=== PATIENT | female | born 1955 | race Caucasian/White ===

== ENCOUNTER 2018-04-05 09:09 | Day surgery (SDC) | payer MEDICARE, OTHER ==
[2018-04-04 11:45] LABS: BASOPHILS % (AUTO) 0.2 % (0-1); EOSINOPHILS # (AUTO) 0.2 X10'3 (0-0.9); EOSINOPHILS % (AUTO) 2.8 % (0-6); LYMPHOCYTES # (AUTO) 0.4 X10'3 (1.1-4.8); LYMPHOCYTES % (AUTO) 4.9 % (21-51); MEAN CORPUSCULAR HEMOGLOBIN 31.5 PG (27.0-31.0); MEAN CORPUSCULAR HGB CONC 33.2 % (33.0-36.5); MEAN CORPUSCULAR VOLUME 94.8 FL (78-98); MEAN PLATELET VOLUME 8.1 FL (7.4-10.4); MONOCYTES # (AUTO) 0.6 X10'3 (0-0.9); MONOCYTES % (AUTO) 7.4 % (2-12); NEUTROPHILS # (AUTO) 6.3 X10'3 (1.8-7.7); NEUTROPHILS % (AUTO) 84.7 % (42-75); PRE OP HEMATOCRIT 29.2 % (35.0-45.0); PRE OP PLATELET COUNT 272 X10'3 (140-440); RED BLOOD COUNT 3.07 X10'6 (4.20-5.60); RED CELL DISTRIBUTION WIDTH 19.3 % (11.5-14.5)
[2018-04-04 11:54] LABS: ALBUMIN 3.2 G/DL (3.4-5.0); ALBUMIN/GLOBULIN RATIO 0.8 (1.1-1.5); ALKALINE PHOSPHATASE 135 IU/L (46-116); BLOOD UREA NITROGEN 120 MG/DL (7-18); BUN/CREATININE RATIO 7.1 (6.6-38.0); CALCIUM 9.5 MG/DL (8.5-10.1); CHLORIDE 82 MMOL/L (99-107); CREATININE 16.86 MG/DL (0.40-0.90); PRE OP ALT 29 U/L (30-65); PRE OP ANION GAP 18 (8-16); PRE OP AST 8 U/L (10-37); PRE OP BILIRUB, TOTAL 0.4 MG/DL (0.0-1.0); PRE OP GLUCOSE 106 MG/DL (70-104); PRE OP HEMOGLOBIN 9.7 g/dL (12.0-16.0); PRE OP POTASSIUM 5.4 MMOL/L (3.4-5.1); TOTAL CARBON DIOXIDE 22.5 MMOL/L (24-32); eGFR 2 ML/MIN
[2018-04-04 11:57] LABS: PRE OP SODIUM 122 MMOL/L (135-145)
[~2018-04-05] VITALS: Ht 160 cm; Wt 60.0 kg
[2018-04-05] VITALS (8 sets, daily range): BP systolic 122–150; BP diastolic 76–88
[~2018-04-05 09:09] MED LIST: ASPI-1265 PO; BIOT5CAP2 PO; BIOT5CAP3 PO; CLON-529 PO; CLON0.3T PO; DILT240C52 PO; DOCUMENT DATE & TIME OF BETA-BLOCKER PO ONE; FOLI0.8T19 PO; LACT10SO PO; LANT1000 PO; LISI-600 PO; LISI40TA4 PO; METO-467 PO; METO100T14 PO; ONDA4TAB6 PO; PHO667C PO; PRAM0.253 PO; PRAM0.5T12 PO; PROSTAT; SEVE800T8 PO; VIT-6 PO; cefazolin/dext.iso 2gm/100 ML IV ONE; famotidine 20mg tablet PO ONE; ringers solution, lacted 1,000 ML IV SCH
[2018-04-05 10:41] LABS: CLARITY,URINE CLEAR (Clear); COLOR,URINE STRAW (Yellow); GLUCOSE, URINE 100 mg/dl (Neg); KETONES,URINE NEGATIVE (Neg); LEUKOCYTE ESTERASE ,URINE SMALL (Neg); NITRITES, URINE NEGATIVE (Neg); OCCULT BLOOD,URINE MODERATE (Neg); PROTEIN,URINE 100 mg/dl (Neg); UROBILINOGEN,URINE 0.2 E.U/dL (0.2-1.0)
[2018-04-05 10:41] LABS: ISTAT ANION GAP 11 (8-12); ISTAT BUN 122 mg/dL (6-19); ISTAT CL 90 mmol/L (99-107); ISTAT CREATININE > 15.0 mg/dL (0.6-1.1); ISTAT GLUCOSE 104 mg/dL (70-104); ISTAT HGB 8.2 g/dl (12.0-16.0); ISTAT Hct 24 %PCV (35-48); ISTAT IONIZED CALCIUM 1.06 mmol/L (1.03-1.32); ISTAT K 5.4 mmol/L (3.5-5.1); ISTAT NA 123 mmol/L (135-145); ISTAT TOTAL CO2 22 mmol/L (24-32); ISTAT eGFR 2 ML/MIN; POC BUN/CREATININE RATIO 8.1 (6.6-38.0)
[2018-04-05 10:48] LABS: UA COLLECTION TYPE CLN CATCH MIDSTREAM
[2018-04-05 10:53] LABS: BACTERIA,URINE 1+ /HPF (Neg); RBC,URINE 0-2 /HPF (0-2); SQUAMOUS EPITHELIAL CELL,UR MANY /LPF (FEW)
[2018-04-05] MEDS ORDERED: ceFAZolin 1000mg inj ONE (13:02)
[2018-04-05] MEDS ORDERED: heparin sodium, porcine/PF 100unit/ml 5ML syringe ONE (13:02)
[2018-04-05] MEDS ORDERED: mupirocin 2% ointment 22GM ONE (13:02)
[2018-04-05] MEDS ORDERED: BUPIVAcaine/PF 2.5mg/ml (0.25%) 10ml vial ONE (13:03)
[2018-04-05] MEDS ORDERED: ringers solution, lacted 1,000 ML IV SCH ×2 (13:16→13:55)
[2018-04-05] MEDS ORDERED: proCHLORperazine 10 MG/2 ml inj IV PRN ×2 (13:20→13:55)
[2018-04-05] MEDS ORDERED: morphine 4 MG/ML inj SYRINge IV PRN ×4 (13:20→13:55)
[2018-04-05] MEDS ORDERED: meperidine/PF 25mg/ml syringe IV PRN ×3 (13:20)
[2018-04-05] MEDS ORDERED: ondansetron/PF 4mg/2ml inj IV PRN ×2 (13:20→13:55)
[2018-04-05] MEDS ORDERED: rocuronium 10mg/ml inj IV ONE (13:30)
[2018-04-05] MEDS ORDERED: neostigmine methylsulfate 1 MG/ML 10ml vial ONE (13:30)
[2018-04-05] MEDS ORDERED: glycopyrrolate 0.2mg/ml inj ONE (13:30)
[2018-04-05] MEDS ORDERED: desflurane 240ml liquid inh. IH ONE (13:30)
[2018-04-05] MEDS ORDERED: midazolam 2 mg/2 ml injection ONE (13:37)
[2018-04-05] MEDS ORDERED: LIDOcaine 2% (20mg/ml) 5ml vial ONE (13:37)
[2018-04-05] MEDS ORDERED: fentaNYL/PF 50MCG/1 ML 2ML syringe ONE (13:37)
[2018-04-05] MEDS ORDERED: propofol inj 20 ML IV ONE (13:38)
[2018-04-05] MEDS ORDERED: ondansetron/PF 4mg/2ml inj ONE (14:24)
== END 2018-04-05 15:25 | disposition home or self-care (01) ==
LOC: PAS 09:09
PROVIDERS: ATTEND Surgery
DX: T85.691A Other mechanical complication of intraperitoneal dialysis catheter, initial encounter (principal); Y83.8 Other surgical procedures as the cause of abnormal reaction of the patient, or of later complication, without mention of misadventure at the time of the procedure; Y92.89 Other specified places as the place of occurrence of the external cause; I12.0 Hypertensive chronic kidney disease with stage 5 chronic kidney disease or end stage renal disease; N18.6 End stage renal disease; K66.0 Peritoneal adhesions (postprocedural) (postinfection); I25.2 Old myocardial infarction; Z85.3 Personal history of malignant neoplasm of breast; Z79.82 Long term (current) use of aspirin; Z99.2 Dependence on renal dialysis; Z90.12 Acquired absence of left breast and nipple; Z92.21 Personal history of antineoplastic chemotherapy; Z90.89 Acquired absence of other organs; Z90.710 Acquired absence of both cervix and uterus; Z90.49 Acquired absence of other specified parts of digestive tract; Z88.6 Allergy status to analgesic agent; Z88.8 Allergy status to other drugs, medicaments and biological substances; Z98.890 Other specified postprocedural states; Z79.899 Other long term (current) drug therapy; Z84.1 Family history of disorders of kidney and ureter
CPT/HCPCS: 36415; 49325; 80047; 80053; 81001; 85025; 93005; A6449; J0690; J2001; J2250; J2405; J2704; J2710; J3010; J3490; A7000; J1642; J7120

== ENCOUNTER 2020-04-16 14:42 | Inpatient (IN) | payer MEDICARE, MEDICAID ==
[~2020-04-16] VITALS: Ht 160 cm; Wt 56.0 kg
[~2020-04-16 14:42] MED LIST changes: -DOCUMENT DATE & TIME OF BETA-BLOCKER PO ONE; -cefazolin/dext.iso 2gm/100 ML IV ONE; -famotidine 20mg tablet PO ONE; -ringers solution, lacted 1,000 ML IV SCH
--- NOTE | 2020-04-16 14:53 | NUR ---
Pt to CT via [facility].
[2020-04-16 15:04] LABS: BASOPHILS # (AUTO) 0.1 X10'3 (0-0.2); EOSINOPHILS # (AUTO) 0.3 X10'3 (0-0.9); EOSINOPHILS % (AUTO) 2.8 % (0-6); HEMATOCRIT 36.7 % (35.0-45.0); HEMOGLOBIN 11.9 g/dl (12.0-16.0); LYMPHOCYTES # (AUTO) 1.2 X10'3 (1.1-4.8); LYMPHOCYTES % (AUTO) 11.7 % (21-51); MEAN CORPUSCULAR HEMOGLOBIN 29.6 PG (27.0-31.0); MEAN CORPUSCULAR HGB CONC 32.4 g/dL (33.0-36.5); MEAN CORPUSCULAR VOLUME 91.4 FL (78-98); MEAN PLATELET VOLUME 9.4 FL (7.4-10.4); MONOCYTES # (AUTO) 0.9 X10'3 (0-0.9); MONOCYTES % (AUTO) 8.9 % (2-12); NEUTROPHILS # (AUTO) 7.7 X10'3 (1.8-7.7); NEUTROPHILS % (AUTO) 75.6 % (42-75); PLATELET COUNT 210 X10'3 (140-440); RED BLOOD COUNT 4.01 X10'6 (4.20-5.60); RED CELL DISTRIBUTION WIDTH 19.3 % (11.5-14.5); WHITE BLOOD COUNT 10.2 X10'3 (4.5-11.0)
--- NOTE | 2020-04-16 15:04 | NUR ---
Pt asked her husbands name and she was able to respond. Pt following commands at this time, slow to respond.
--- NOTE | 2020-04-16 15:04 | NUR ---
Pt returned from CT. Keke Alex RN at bedside.
--- NOTE | 2020-04-16 15:05 | NUR ---
Ivett scott at bedside.
[2020-04-16 15:19] LABS: PARTIAL THROMBOPLASTIN TIME 26 SECONDS (22-32)
[2020-04-16 15:24] LABS: ALANINE AMINOTRANSFERASE 23 U/L (12-78); ALBUMIN/GLOBULIN RATIO 0.7 (1.1-1.5); ALKALINE PHOSPHATASE 128 IU/L (46-116); ANION GAP 18 (8-16); ASPARTATE AMINO TRANSFERASE 28 U/L (10-37); BILIRUBIN,TOTAL 0.4 MG/DL (0.1-1.0); BLOOD UREA NITROGEN 38 MG/DL (7-18); BUN/CREATININE RATIO 3.9 (6.6-38.0); CALCIUM 8.6 MG/DL (8.5-10.1); CHLORIDE 94 MMOL/L (99-107); CREATININE 9.72 MG/DL (0.40-0.90); GLUCOSE 135 MG/DL (70-104); SODIUM 135 MMOL/L (135-145); TOTAL CARBON DIOXIDE 23.4 MMOL/L (24-32); TOTAL PROTEIN 7.5 G/DL (6.4-8.2); eGFR 4 ML/MIN
[2020-04-16 15:35] LABS: ANISOCYTOSIS 2+; LARGE PLATELETS FEW; PLATELET ESTIMATE NORMAL
--- NOTE | 2020-04-16 15:38 | NUR ---
Pts at bedside.
--- NOTE | 2020-04-16 15:49 | NUR ---
Pt states she does not make urine. Unable to obtain urine sample.
[2020-04-16] MEDS ORDERED: labetalol 20mg/4ml (5mg/ml) syringe IV ONE (15:55)
[2020-04-16] MEDS ORDERED: metoclopramide 5 mg/ml inj IV ONE (15:55)
[2020-04-16] MEDS ORDERED: ondansetron/PF 4mg/2ml inj IV PRN (16:00)
[2020-04-16] MEDS ORDERED: acetaminophen 325mg tablet PO PRN (16:00)
[2020-04-16] MEDS ORDERED: bisacodyl 10mg suppository rectal RC PRN (16:00)
--- NOTE | 2020-04-16 16:20 | NUR ---
Pt medicated for headache. Pt states pain has resolved at this time.
[2020-04-16] MEDS ORDERED: DILT360C38 PO (16:41)
[2020-04-16] MEDS ORDERED: ISOS60TA4 PO (16:43)
[2020-04-16] MEDS ORDERED: OMEP40CA13 PO (16:43)
[2020-04-16] MEDS ORDERED: VIT1TABL50 PO (16:43)
[2020-04-16] MEDS ORDERED: LEVO50TA8 PO (16:43)
[2020-04-16] MEDS ORDERED: ROSU5TAB12 PO (16:43)
--- NOTE | 2020-04-16 17:16 | NUR ---
Pt to MRI via w/c.
[2020-04-16] MEDS: aspirin 81mg tab.chew PO SCH (17:20)
[2020-04-16] MEDS: sevelamer carbonate 800mg tablet PO SCH (18:00)
[2020-04-16] MEDS: docusate sod 100mg capsule PO SCH ×2 (20:00→20:28)
--- NOTE | 2020-04-16 20:00 | NUR ---
I have received report from Galen from the ED and had the opportunity to ask questions and assume patient care.
[2020-04-16 20:15] VITALS: BP 188/94
--- NOTE | 2020-04-16 20:15 | NUR ---
Received pt from ED, settled into bed, assessed, passed medications and assisted PD Nurse with setting up tonight treatment. Will continue to monitor.
[2020-04-16] MEDS: lisinopril 20mg tablet PO SCH (20:27)
[2020-04-16] MEDS: cloNIDine 0.1 mg tablet PO SCH (20:28)
[2020-04-16] MEDS: metoprolol tartrate 50mg tablet PO SCH (20:29)
[2020-04-16] MEDS: heparin, porcine 5000 units/ml vial SQ SCH (20:31)
[2020-04-16] MEDS: HYDROcodone/acetaminophen 5mg/325mg tablet PO PRN (20:32)
--- NOTE | 2020-04-16 21:36 | NUR ---
Called Jodee Blair in regards to pts critical K level that was obtained in the ER. No new orders at this time. May states that the lab was old and we will readdress the level when new labs are drawn in am.
[2020-04-16 22:00] VITALS: BP 176/95
[2020-04-17] VITALS (7 sets, daily range): BP systolic 164–211; BP diastolic 92–108
[2020-04-17] MEDS: HYDROcodone/acetaminophen 5mg/325mg tablet PO PRN ×3 (01:42→20:45)
[2020-04-17 05:55] LABS: BASOPHILS % (AUTO) 0.5 % (0-1); EOSINOPHILS # (AUTO) 0.2 X10'3 (0-0.9); EOSINOPHILS % (AUTO) 2.3 % (0-6); HEMATOCRIT 33.7 % (35.0-45.0); HEMOGLOBIN 11.1 g/dl (12.0-16.0); LYMPHOCYTES # (AUTO) 0.9 X10'3 (1.1-4.8); LYMPHOCYTES % (AUTO) 10.8 % (21-51); MEAN CORPUSCULAR HEMOGLOBIN 29.8 PG (27.0-31.0); MEAN CORPUSCULAR HGB CONC 32.9 g/dL (33.0-36.5); MEAN CORPUSCULAR VOLUME 90.7 FL (78-98); MEAN PLATELET VOLUME 9.4 FL (7.4-10.4); MONOCYTES # (AUTO) 0.7 X10'3 (0-0.9); MONOCYTES % (AUTO) 8.7 % (2-12); NEUTROPHILS # (AUTO) 6.5 X10'3 (1.8-7.7); NEUTROPHILS % (AUTO) 77.7 % (42-75); PLATELET COUNT 181 X10'3 (140-440); RED BLOOD COUNT 3.72 X10'6 (4.20-5.60); RED CELL DISTRIBUTION WIDTH 18.8 % (11.5-14.5); WHITE BLOOD COUNT 8.3 X10'3 (4.5-11.0)
[2020-04-17 06:08] LABS: ALANINE AMINOTRANSFERASE 20 U/L (12-78); ALBUMIN 2.9 G/DL (3.4-5.0); ALBUMIN/GLOBULIN RATIO 0.7 (1.1-1.5); ALKALINE PHOSPHATASE 118 IU/L (46-116); ANION GAP 15 (8-16); ASPARTATE AMINO TRANSFERASE 17 U/L (10-37); BILIRUBIN,TOTAL 0.4 MG/DL (0.1-1.0); BLOOD UREA NITROGEN 36 MG/DL (7-18); BUN/CREATININE RATIO 3.8 (6.6-38.0); CALCIUM 8.8 MG/DL (8.5-10.1); CHLORIDE 98 MMOL/L (99-107); GLUCOSE 112 MG/DL (70-104); MAGNESIUM 1.9 MG/DL (1.5-2.4); PHOSPHORUS 7.1 MG/DL (2.3-4.5); SODIUM 140 MMOL/L (135-145); TOTAL CARBON DIOXIDE 26.9 MMOL/L (24-32); eGFR 4 ML/MIN
[2020-04-17 06:15] LABS: POTASSIUM 2.4 MMOL/L (3.5-5.1)
--- NOTE | 2020-04-17 06:18 | NUR ---
Problems reprioritized. Patient report given, questions answered & plan of care reviewed with Mariela RUEDA.
--- NOTE | 2020-04-17 06:30 | NUR ---
Patient in room PCU 3016. I have received report from MOHIT Guillory and had the opportunity to ask questions and assume patient care.
--- NOTE | 2020-04-17 07:20 | NUR ---
Called Kimberley regarding pts critical potassium of 2.4. No answer. Will continue to monitor patients heart rate and rhythm
[2020-04-17] MEDS: heparin, porcine 5000 units/ml vial SQ SCH ×2 (07:29→20:49)
[2020-04-17] MEDS: aspirin 81mg tab.chew PO SCH (07:29)
[2020-04-17] MEDS: docusate sod 100mg capsule PO SCH ×2 (07:30→20:00)
[2020-04-17] MEDS: folic acid/vitamin B complex w/vitamin C 0.8mg tablet PO SCH (07:31)
[2020-04-17] MEDS: levoTHYROXINE 25mcg tablet PO SCH (07:31)
[2020-04-17] MEDS: pantoprazole 40mg Tablet.DR PO SCH (07:33)
[2020-04-17] MEDS: atorvastatin 20mg tablet PO SCH (07:33)
[2020-04-17] MEDS: cloNIDine 0.1 mg tablet PO SCH ×3 (07:37→20:45)
[2020-04-17] MEDS: isosorbide mononitrate 30mg tab.SR.24H PO SCH (07:37)
[2020-04-17] MEDS: diltiazem CD 180mg cap (once-daily) PO SCH (07:38)
[2020-04-17] MEDS: metoprolol tartrate 50mg tablet PO SCH ×2 (07:38→20:47)
[2020-04-17] MEDS: sevelamer carbonate 800mg tablet PO SCH ×3 (07:42→17:56)
[2020-04-17 07:57] LABS: LARGE PLATELETS FEW
[2020-04-17 07:58] LABS: ANISOCYTOSIS 2+; PLATELET ESTIMATE NORMAL
--- NOTE | 2020-04-17 08:30 | NUR ---
Called Antionette regarding potassium of 2.4 for replacement.
[2020-04-17] MEDS ORDERED: pneumococcal 23-VAL P-sac vacc 25 mcg/0.5ml vial IMVAC ONE (10:00)
--- NOTE | 2020-04-17 12:00 | NUR ---
Spoke to Keyla RN with dialysis who asked Christie about pts potassium of 2.4. Per wraparound facilitator, christie stated to not to supplement at this time as pt will receive K+ through diet.
--- NOTE | 2020-04-17 18:00 | NUR ---
Patient in room PCU 3016. I have received report from Mariela RUEDA and had the opportunity to ask questions and assume patient care.
--- NOTE | 2020-04-17 18:07 | NUR ---
Problems reprioritized. Patient report given, questions answered & plan of care reviewed with MOHIT Alarcon.
[2020-04-17] MEDS: POTASSIUM BICARB 20meq eff tab 20 MEQ TABLET.EFF PO SCH (20:44)
[2020-04-17] MEDS: lisinopril 20mg tablet PO SCH (20:48)
[2020-04-18] MEDS: HYDROcodone/acetaminophen 5mg/325mg tablet PO PRN ×3 (01:28→22:40)
[2020-04-18 02:00] VITALS: BP 175/99
--- NOTE | 2020-04-18 06:00 | NUR ---
Patient in room PCU 3016. I have received report from Agnes RUEDA and had the opportunity to ask questions and assume patient care.
--- NOTE | 2020-04-18 06:07 | NUR ---
Problems reprioritized. Patient report given, questions answered & plan of care reviewed with Alyx RUEDA.
[2020-04-18 06:19] LABS: BASOPHILS % (AUTO) 0.5 % (0-1); EOSINOPHILS # (AUTO) 0.2 X10'3 (0-0.9); EOSINOPHILS % (AUTO) 3.3 % (0-6); HEMATOCRIT 29.3 % (35.0-45.0); HEMOGLOBIN 9.6 g/dl (12.0-16.0); LYMPHOCYTES # (AUTO) 0.9 X10'3 (1.1-4.8); LYMPHOCYTES % (AUTO) 14.3 % (21-51); MEAN CORPUSCULAR HEMOGLOBIN 29.8 PG (27.0-31.0); MEAN CORPUSCULAR HGB CONC 32.8 g/dL (33.0-36.5); MEAN CORPUSCULAR VOLUME 90.8 FL (78-98); MEAN PLATELET VOLUME 10.1 FL (7.4-10.4); MONOCYTES # (AUTO) 0.6 X10'3 (0-0.9); MONOCYTES % (AUTO) 9.9 % (2-12); NEUTROPHILS # (AUTO) 4.5 X10'3 (1.8-7.7); PLATELET COUNT 159 X10'3 (140-440); RED BLOOD COUNT 3.23 X10'6 (4.20-5.60); RED CELL DISTRIBUTION WIDTH 18.6 % (11.5-14.5); WHITE BLOOD COUNT 6.3 X10'3 (4.5-11.0)
[2020-04-18 06:33] LABS: ALANINE AMINOTRANSFERASE 18 U/L (12-78); ALBUMIN 2.4 G/DL (3.4-5.0); ALBUMIN/GLOBULIN RATIO 0.7 (1.1-1.5); ALKALINE PHOSPHATASE 105 IU/L (46-116); ANION GAP 12 (8-16); ASPARTATE AMINO TRANSFERASE 14 U/L (10-37); BILIRUBIN,TOTAL 0.3 MG/DL (0.1-1.0); BLOOD UREA NITROGEN 38 MG/DL (7-18); BUN/CREATININE RATIO 3.8 (6.6-38.0); CALCIUM 8.2 MG/DL (8.5-10.1); CHLORIDE 99 MMOL/L (99-107); GLUCOSE 92 MG/DL (70-104); MAGNESIUM 1.9 MG/DL (1.5-2.4); PHOSPHORUS 6.2 MG/DL (2.3-4.5); SODIUM 140 MMOL/L (135-145); TOTAL CARBON DIOXIDE 28.8 MMOL/L (24-32); eGFR 4 ML/MIN
[2020-04-18 06:48] LABS: POTASSIUM 2.9 MMOL/L (3.5-5.1)
[2020-04-18 07:00] VITALS: BP 211/118
[2020-04-18] MEDS: levoTHYROXINE 25mcg tablet PO SCH (08:20)
[2020-04-18] MEDS: metoprolol tartrate 50mg tablet PO SCH ×2 (08:21→20:16)
[2020-04-18] MEDS: isosorbide mononitrate 30mg tab.SR.24H PO SCH (08:21)
[2020-04-18] MEDS: diltiazem CD 180mg cap (once-daily) PO SCH (08:21)
[2020-04-18] MEDS: atorvastatin 20mg tablet PO SCH (08:22)
[2020-04-18] MEDS: folic acid/vitamin B complex w/vitamin C 0.8mg tablet PO SCH (08:22)
[2020-04-18] MEDS: docusate sod 100mg capsule PO SCH ×2 (08:22→20:00)
[2020-04-18] MEDS: pantoprazole 40mg Tablet.DR PO SCH (08:22)
[2020-04-18] MEDS: aspirin 81mg tab.chew PO SCH (08:22)
[2020-04-18] MEDS: cloNIDine 0.1 mg tablet PO SCH ×4 (08:22→20:16)
[2020-04-18] MEDS: POTASSIUM BICARB 20meq eff tab 20 MEQ TABLET.EFF PO SCH ×2 (08:23→20:12)
[2020-04-18] MEDS: heparin, porcine 5000 units/ml vial SQ SCH ×2 (08:23→20:12)
[2020-04-18] MEDS: sevelamer carbonate 800mg tablet PO SCH ×3 (08:32→17:40)
[2020-04-18 11:00] VITALS: BP 180/101
[2020-04-18 15:00] VITALS: BP 178/92
[2020-04-18 18:00] VITALS: BP 178/95
--- NOTE | 2020-04-18 18:17 | NUR ---
Problems reprioritized. Patient report given, questions answered & plan of care reviewed with Sarah RUEDA.
--- NOTE | 2020-04-18 18:30 | NUR ---
Patient in room PCU 3016. I have received report from Alyx RUEDA and had the opportunity to ask questions and assume patient care.
[2020-04-18] MEDS: lisinopril 20mg tablet PO SCH (20:15)
[2020-04-18 22:00] VITALS: BP 153/93
[2020-04-19] VITALS (7 sets, daily range): BP systolic 162–184; BP diastolic 98–107
--- NOTE | 2020-04-19 06:36 | NUR ---
Patient in room PCU 3016. I have received report from Sarah RUEDA and had the opportunity to ask questions and assume patient care.
[2020-04-19 06:49] LABS: BASOPHILS % (AUTO) 0.5 % (0-1); EOSINOPHILS # (AUTO) 0.2 X10'3 (0-0.9); EOSINOPHILS % (AUTO) 3.1 % (0-6); HEMATOCRIT 30.3 % (35.0-45.0); LYMPHOCYTES # (AUTO) 0.8 X10'3 (1.1-4.8); LYMPHOCYTES % (AUTO) 13.1 % (21-51); MEAN CORPUSCULAR HEMOGLOBIN 30.4 PG (27.0-31.0); MEAN CORPUSCULAR HGB CONC 33.1 g/dL (33.0-36.5); MEAN PLATELET VOLUME 9.8 FL (7.4-10.4); MONOCYTES # (AUTO) 0.6 X10'3 (0-0.9); MONOCYTES % (AUTO) 9.7 % (2-12); NEUTROPHILS # (AUTO) 4.6 X10'3 (1.8-7.7); NEUTROPHILS % (AUTO) 73.6 % (42-75); PLATELET COUNT 164 X10'3 (140-440); RED CELL DISTRIBUTION WIDTH 18.8 % (11.5-14.5); WHITE BLOOD COUNT 6.2 X10'3 (4.5-11.0)
--- NOTE | 2020-04-19 06:57 | NUR ---
Problems reprioritized. Patient report given, questions answered & plan of care reviewed with Eva RUEDA.
[2020-04-19 07:20] LABS: ALANINE AMINOTRANSFERASE 18 U/L (12-78); ALBUMIN 2.5 G/DL (3.4-5.0); ALBUMIN/GLOBULIN RATIO 0.7 (1.1-1.5); ALKALINE PHOSPHATASE 110 IU/L (46-116); ANION GAP 11 (8-16); ASPARTATE AMINO TRANSFERASE 12 U/L (10-37); BILIRUBIN,TOTAL 0.3 MG/DL (0.1-1.0); BLOOD UREA NITROGEN 41 MG/DL (7-18); BUN/CREATININE RATIO 3.9 (6.6-38.0); CALCIUM 8.7 MG/DL (8.5-10.1); CHLORIDE 97 MMOL/L (99-107); CREATININE 10.38 MG/DL (0.40-0.90); GLUCOSE 106 MG/DL (70-104); PHOSPHORUS 5.5 MG/DL (2.3-4.5); POTASSIUM 3.9 MMOL/L (3.5-5.1); SODIUM 138 MMOL/L (135-145); TOTAL CARBON DIOXIDE 30.4 MMOL/L (24-32); TOTAL PROTEIN 6.2 G/DL (6.4-8.2); eGFR 4 ML/MIN
[2020-04-19 07:42] LABS: ANISOCYTOSIS 2+; HYPOCHROMASIA 1+; PLATELET ESTIMATE NORMAL
[2020-04-19] MEDS: POTASSIUM BICARB 20meq eff tab 20 MEQ TABLET.EFF PO SCH ×2 (08:11→20:31)
[2020-04-19] MEDS: isosorbide mononitrate 30mg tab.SR.24H PO SCH (08:12)
[2020-04-19] MEDS: levoTHYROXINE 25mcg tablet PO SCH (08:13)
[2020-04-19] MEDS: aspirin 81mg tab.chew PO SCH (08:14)
[2020-04-19] MEDS: diltiazem CD 180mg cap (once-daily) PO SCH (08:14)
[2020-04-19] MEDS: pantoprazole 40mg Tablet.DR PO SCH (08:14)
[2020-04-19] MEDS: metoprolol tartrate 50mg tablet PO SCH ×2 (08:14→20:36)
[2020-04-19] MEDS: docusate sod 100mg capsule PO SCH ×2 (08:15→20:40)
[2020-04-19] MEDS: cloNIDine 0.1 mg tablet PO SCH ×3 (08:15→20:38)
[2020-04-19] MEDS: folic acid/vitamin B complex w/vitamin C 0.8mg tablet PO SCH (08:15)
[2020-04-19] MEDS: atorvastatin 20mg tablet PO SCH (08:15)
[2020-04-19] MEDS: heparin, porcine 5000 units/ml vial SQ SCH ×2 (08:16→20:32)
[2020-04-19] MEDS: sevelamer carbonate 800mg tablet PO SCH ×3 (08:17→17:28)
[2020-04-19] MEDS: HYDROchlorothiazide 12.5mg capsule PO SCH ×2 (16:03→23:25)
--- NOTE | 2020-04-19 18:36 | NUR ---
Patient in room PCU 3016. I have received report from Eva RUEDA and had the opportunity to ask questions and assume patient care.
--- NOTE | 2020-04-19 18:37 | NUR ---
Problems reprioritized. Patient report given, questions answered & plan of care reviewed with Sarah RUEDA.
[2020-04-19] MEDS: HYDROcodone/acetaminophen 5mg/325mg tablet PO PRN (20:37)
[2020-04-19] MEDS: lisinopril 20mg tablet PO SCH (20:38)
[2020-04-20] VITALS (7 sets, daily range): BP systolic 116–206; BP diastolic 91–135
[2020-04-20] MEDS: HYDROcodone/acetaminophen 5mg/325mg tablet PO PRN ×2 (00:49→21:03)
--- NOTE | 2020-04-20 02:30 | NUR ---
Radha Menchaca NP notified of patient's persistent elevated SBP 184-188. Pt. asymptomatic. No new orders given.
--- NOTE | 2020-04-20 06:10 | NUR ---
Patient in room PCU 3016. I have received report from Sarah RUEDA and had the opportunity to ask questions and assume patient care.
[2020-04-20 06:30] LABS: BASOPHILS % (AUTO) 0.5 % (0-1); EOSINOPHILS # (AUTO) 0.2 X10'3 (0-0.9); EOSINOPHILS % (AUTO) 2.9 % (0-6); HEMATOCRIT 33.8 % (35.0-45.0); HEMOGLOBIN 11.1 g/dl (12.0-16.0); LYMPHOCYTES # (AUTO) 0.9 X10'3 (1.1-4.8); LYMPHOCYTES % (AUTO) 11.9 % (21-51); MEAN CORPUSCULAR HEMOGLOBIN 30.2 PG (27.0-31.0); MEAN CORPUSCULAR VOLUME 91.7 FL (78-98); MEAN PLATELET VOLUME 9.8 FL (7.4-10.4); MONOCYTES # (AUTO) 0.7 X10'3 (0-0.9); MONOCYTES % (AUTO) 8.5 % (2-12); NEUTROPHILS # (AUTO) 5.8 X10'3 (1.8-7.7); NEUTROPHILS % (AUTO) 76.2 % (42-75); PLATELET COUNT 198 X10'3 (140-440); RED BLOOD COUNT 3.68 X10'6 (4.20-5.60); RED CELL DISTRIBUTION WIDTH 19.6 % (11.5-14.5); WHITE BLOOD COUNT 7.7 X10'3 (4.5-11.0)
--- NOTE | 2020-04-20 06:31 | NUR ---
Problems reprioritized. Patient report given, questions answered & plan of care reviewed with Eva RUEDA.
--- NOTE | 2020-04-20 06:54 | NUR ---
Student documentation: I have reviewed and agree with all interventions, assessments performed and documented by Manuel Christopher Clinical Rn Liaison.
[2020-04-20 06:58] LABS: ALANINE AMINOTRANSFERASE 19 U/L (12-78); ALBUMIN 2.6 G/DL (3.4-5.0); ALBUMIN/GLOBULIN RATIO 0.7 (1.1-1.5); ALKALINE PHOSPHATASE 119 IU/L (46-116); ANION GAP 11 (8-16); ASPARTATE AMINO TRANSFERASE 12 U/L (10-37); BILIRUBIN,TOTAL 0.3 MG/DL (0.1-1.0); BLOOD UREA NITROGEN 45 MG/DL (7-18); BUN/CREATININE RATIO 4.5 (6.6-38.0); CALCIUM 8.8 MG/DL (8.5-10.1); CHLORIDE 95 MMOL/L (99-107); CREATININE 9.97 MG/DL (0.40-0.90); GLUCOSE 106 MG/DL (70-104); PHOSPHORUS 4.5 MG/DL (2.3-4.5); POTASSIUM 4.9 MMOL/L (3.5-5.1); SODIUM 136 MMOL/L (135-145); TOTAL CARBON DIOXIDE 30.1 MMOL/L (24-32); TOTAL PROTEIN 6.5 G/DL (6.4-8.2); eGFR 4 ML/MIN
[2020-04-20 07:47] LABS: ANISOCYTOSIS 2+; PLATELET ESTIMATE NORMAL
[2020-04-20] MEDS: sevelamer carbonate 800mg tablet PO SCH ×3 (07:47→17:50)
[2020-04-20] MEDS: docusate sod 100mg capsule PO SCH ×2 (07:47→19:10)
[2020-04-20] MEDS: POTASSIUM BICARB 20meq eff tab 20 MEQ TABLET.EFF PO SCH ×2 (07:47→19:12)
[2020-04-20] MEDS: diltiazem CD 180mg cap (once-daily) PO SCH (07:48)
[2020-04-20] MEDS: metoprolol tartrate 50mg tablet PO SCH ×2 (07:49→19:11)
[2020-04-20] MEDS: HYDROchlorothiazide 12.5mg capsule PO SCH (07:49)
[2020-04-20] MEDS: levoTHYROXINE 25mcg tablet PO SCH (07:50)
[2020-04-20] MEDS: aspirin 81mg tab.chew PO SCH (07:50)
[2020-04-20] MEDS: pantoprazole 40mg Tablet.DR PO SCH (07:52)
[2020-04-20] MEDS: isosorbide mononitrate 30mg tab.SR.24H PO SCH (07:52)
[2020-04-20] MEDS: cloNIDine 0.1 mg tablet PO SCH ×3 (07:53→20:49)
[2020-04-20] MEDS: folic acid/vitamin B complex w/vitamin C 0.8mg tablet PO SCH (07:53)
[2020-04-20] MEDS: atorvastatin 20mg tablet PO SCH (07:53)
[2020-04-20] MEDS: heparin, porcine 5000 units/ml vial SQ SCH ×2 (07:54→19:11)
[2020-04-20] MEDS ORDERED: minoxidil 2.5mg tablet PO SCH (12:50)
[2020-04-20] MEDS ORDERED: furosemide 10 MG/1 ML 10ml inj IV ONE (14:40)
--- NOTE | 2020-04-20 15:09 | NUR ---
Paged RT re: Chely Dinero RM [id number], Pt having trouble breathing. Send Treatment robert. Thank you Eva RUEDA [phone]
--- NOTE | 2020-04-20 15:10 | NUR ---
Jaciel aware of pts High blood pressure 206/135. MD changed medications regiment and added Lasix to help with fluids. Will continue to monitor.
[2020-04-20] MEDS ORDERED: LORazepam 0.5 MG tablet PO ONE (15:15)
--- NOTE | 2020-04-20 15:22 | NUR ---
Chest X ray and RT on their sampson for STAT order per Jaciel. Will continue to monitor.
[2020-04-20 15:36] LABS: ABG BASE EXCESS 6.5 mmol/L (-2.0-2.0); ABG HCO3 30.6 mmol/L (22.0-26.0); ABG PCO2 (T) 41.7 mmHg (32.0-45.0); ABG PO2 (T) 59.1 mmHg (75.0-100.0); ALLEN'S TEST POSITIVE; FCOHb 0.9 % (0.0-3.9); FLOW 8 L/min; FMetHb 0.3 % (0.0-1.5); FO2Hb 90.9 % (94-97); TOTAL HEMOGLOBIN 13.2 G/dl (12.0-16.0)
[2020-04-20] MEDS: minoxidil 2.5mg tablet PO SCH (17:51)
--- NOTE | 2020-04-20 18:25 | NUR ---
Patient in room PCU 3016. I have received report from Eva Malloy RN and had the opportunity to ask questions and assume patient care.
--- NOTE | 2020-04-20 18:28 | NUR ---
Problems reprioritized. Patient report given, questions answered & plan of care reviewed with Sanya RN.
--- NOTE | 2020-04-20 18:34 | NUR ---
Patient in room PCU 3016. I have received report from MOHIT Velasquez and had the opportunity to ask questions and assume patient care.
[2020-04-20] MEDS: lisinopril 20mg tablet PO SCH (20:50)
[2020-04-21] VITALS (9 sets, daily range): BP systolic 125–177; BP diastolic 73–105
[2020-04-21] MEDS: minoxidil 2.5mg tablet PO SCH ×2 (00:06→08:22)
[2020-04-21 06:16] LABS: BASOPHILS # (AUTO) 0.1 X10'3 (0-0.2); EOSINOPHILS # (AUTO) 0.2 X10'3 (0-0.9); EOSINOPHILS % (AUTO) 1.8 % (0-6); HEMATOCRIT 31.8 % (35.0-45.0); HEMOGLOBIN 10.3 g/dl (12.0-16.0); LYMPHOCYTES # (AUTO) 0.7 X10'3 (1.1-4.8); LYMPHOCYTES % (AUTO) 7.7 % (21-51); MEAN CORPUSCULAR HEMOGLOBIN 29.7 PG (27.0-31.0); MEAN CORPUSCULAR HGB CONC 32.4 g/dL (33.0-36.5); MEAN CORPUSCULAR VOLUME 91.7 FL (78-98); MEAN PLATELET VOLUME 9.5 FL (7.4-10.4); MONOCYTES # (AUTO) 0.7 X10'3 (0-0.9); MONOCYTES % (AUTO) 8.2 % (2-12); NEUTROPHILS # (AUTO) 7.2 X10'3 (1.8-7.7); NEUTROPHILS % (AUTO) 81.3 % (42-75); PLATELET COUNT 182 X10'3 (140-440); RED BLOOD COUNT 3.47 X10'6 (4.20-5.60); RED CELL DISTRIBUTION WIDTH 19.3 % (11.5-14.5); WHITE BLOOD COUNT 8.8 X10'3 (4.5-11.0)
--- NOTE | 2020-04-21 06:16 | NUR ---
Problems reprioritized. Patient report given, questions answered & plan of care reviewed with Monica RUEDA.
--- NOTE | 2020-04-21 06:17 | NUR ---
Problems reprioritized. Patient report given, questions answered & plan of care reviewed with MOHIT Fofana.
--- NOTE | 2020-04-21 06:17 | NUR ---
orientee Medication Administration: For this medication-pass time frame, all medication were reviewed, dispensed, administered and documented per hospital policy by Faiza RUEDA. Sharath Medication Administration: For this medication-pass time frame, all medication were reviewed, dispensed, administered and documented per hospital policy by Faiza RUEDA.
[2020-04-21 06:50] LABS: ALANINE AMINOTRANSFERASE 15 U/L (12-78); ALBUMIN 2.5 G/DL (3.4-5.0); ALBUMIN/GLOBULIN RATIO 0.6 (1.1-1.5); ALKALINE PHOSPHATASE 118 IU/L (46-116); ANION GAP 9 (8-16); ASPARTATE AMINO TRANSFERASE 13 U/L (10-37); BILIRUBIN,TOTAL 0.4 MG/DL (0.1-1.0); BLOOD UREA NITROGEN 45 MG/DL (7-18); BUN/CREATININE RATIO 4.5 (6.6-38.0); CALCIUM 9.2 MG/DL (8.5-10.1); CHLORIDE 97 MMOL/L (99-107); CREATININE 10.02 MG/DL (0.40-0.90); GLUCOSE 163 MG/DL (70-104); MAGNESIUM 2.2 MG/DL (1.5-2.4); PHOSPHORUS 4.6 MG/DL (2.3-4.5); POTASSIUM 5.9 MMOL/L (3.5-5.1); SODIUM 137 MMOL/L (135-145); TOTAL CARBON DIOXIDE 30.9 MMOL/L (24-32); TOTAL PROTEIN 6.4 G/DL (6.4-8.2); eGFR 4 ML/MIN
[2020-04-21 07:01] LABS: ANISOCYTOSIS 2+; PLATELET ESTIMATE NORMAL
[2020-04-21] MEDS: sevelamer carbonate 800mg tablet PO SCH ×3 (08:00→17:42)
[2020-04-21] MEDS: POTASSIUM BICARB 20meq eff tab 20 MEQ TABLET.EFF PO SCH (08:10)
[2020-04-21] MEDS: heparin, porcine 5000 units/ml vial SQ SCH ×2 (08:10→21:08)
[2020-04-21] MEDS: folic acid/vitamin B complex w/vitamin C 0.8mg tablet PO SCH (08:11)
[2020-04-21] MEDS: levoTHYROXINE 25mcg tablet PO SCH (08:12)
[2020-04-21] MEDS: metoprolol tartrate 50mg tablet PO SCH ×2 (08:12→21:06)
[2020-04-21] MEDS: docusate sod 100mg capsule PO SCH ×2 (08:12→20:00)
[2020-04-21] MEDS: isosorbide mononitrate 30mg tab.SR.24H PO SCH (08:12)
[2020-04-21] MEDS: diltiazem CD 180mg cap (once-daily) PO SCH (08:12)
[2020-04-21] MEDS: cloNIDine 0.1 mg tablet PO SCH ×3 (08:12→21:05)
[2020-04-21] MEDS: aspirin 81mg tab.chew PO SCH (08:12)
[2020-04-21] MEDS: pantoprazole 40mg Tablet.DR PO SCH (08:12)
[2020-04-21] MEDS: atorvastatin 20mg tablet PO SCH (08:13)
--- NOTE | 2020-04-21 08:54 | NUR ---
Notified Dr. Adan of medication error, 175mcg of Synthroid given instead of the ordered 50mcg dose. No new orders given, will continue to monitor.
--- NOTE | 2020-04-21 15:38 | NUR ---
Initial: Pt admit w/ AMS, HTN, and hx ESRD on PD HS per EMR. Pt remains hypertensive though ALOC resolved per EMR. Pt advanced to renal/1.5L fluid restricted diet w/ PO improving from ~50% avg initially to 100% all meals today. LBM 04/20. Will monitor for additional protein needs on PD pending further PO hx this admit. Rec: 1. continue renal/1.5L fluid-restricted diet per MD 2. monitor for ONS needs 3. Nephro-serafin on PD and renvela w/ meals per MD 4. routine bowel care 5. wts w/ PD Addendum: 04/21/20 at [address] Amended: Links added.
[2020-04-21] MEDS: HYDROcodone/acetaminophen 5mg/325mg tablet PO PRN (17:43)
--- NOTE | 2020-04-21 18:10 | NUR ---
Patient in room PCU 3016. I have received report from MOHIT Anderson and had the opportunity to ask questions and assume patient care.
--- NOTE | 2020-04-21 18:20 | NUR ---
Orientee documentation: I have reviewed and agree with all interventions, assessments performed and documented by Nurys RUEDA. Orientee Medication Administration: For this medication-pass time frame, all medication were reviewed, dispensed, administered and documented per hospital policy by Nurys RUEDA.
--- NOTE | 2020-04-21 18:21 | NUR ---
Problems reprioritized. Patient report given, questions answered & plan of care reviewed with Dorothy RUEDA. Addendum: 04/21/20 at 1825 by Monica Nagy RN Note entered in error, report given to Karly RUEDA
[2020-04-21] MEDS ORDERED: doxazosin mesylate 2mg tablet PO SCH (21:00)
[2020-04-21] MEDS: lisinopril 20mg tablet PO SCH (21:06)
[2020-04-22 03:00] VITALS: BP 131/76
[2020-04-22] MEDS: HYDROcodone/acetaminophen 5mg/325mg tablet PO PRN (03:06)
--- NOTE | 2020-04-22 06:08 | NUR ---
Patient in room PCU 3016. I have received report from MOHIT Anderson and had the opportunity to ask questions and assume patient care.
--- NOTE | 2020-04-22 06:18 | NUR ---
Patient in room PCU 3016. I have received report from Sanya RUEDA and Faiza RUEDA and had the opportunity to ask questions and assume patient care.
--- NOTE | 2020-04-22 06:25 | NUR ---
Problems reprioritized. Patient report given, questions answered & plan of care reviewed with MOHIT Fofana.
[2020-04-22 06:59] VITALS: BP 117/71
[2020-04-22] MEDS: sevelamer carbonate 800mg tablet PO SCH ×2 (07:34→12:48)
[2020-04-22] MEDS: levoTHYROXINE 25mcg tablet PO SCH (07:34)
[2020-04-22] MEDS: isosorbide mononitrate 30mg tab.SR.24H PO SCH (07:35)
[2020-04-22] MEDS: folic acid/vitamin B complex w/vitamin C 0.8mg tablet PO SCH (07:35)
[2020-04-22] MEDS: cloNIDine 0.1 mg tablet PO SCH ×2 (07:36→12:48)
[2020-04-22] MEDS: aspirin 81mg tab.chew PO SCH (07:37)
[2020-04-22] MEDS: metoprolol tartrate 50mg tablet PO SCH (07:37)
[2020-04-22] MEDS: diltiazem CD 180mg cap (once-daily) PO SCH (07:37)
[2020-04-22] MEDS: atorvastatin 20mg tablet PO SCH (07:38)
[2020-04-22] MEDS: pantoprazole 40mg Tablet.DR PO SCH (07:38)
[2020-04-22] MEDS: heparin, porcine 5000 units/ml vial SQ SCH (07:39)
[2020-04-22] MEDS: docusate sod 100mg capsule PO SCH (07:41)
[2020-04-22 11:29] VITALS: BP 130/74
[2020-04-22] MEDS ORDERED: METO50TA16 PO (13:40)
[2020-04-22] MEDS ORDERED: CLON0.1T2 PO (13:40)
[2020-04-22] MEDS ORDERED: DOXA2TAB13 PO (13:40)
--- NOTE | 2020-04-22 16:42 | NUR ---
Patient stable for discharge per MD order. all necessary discharge information reviewed with patient before signing, panel monitor removed and returned, all belongings packed up and sent with patient, new Rx sent to preferred pharmacy [facility], left in private vehicle.
== END 2020-04-22 15:17 | disposition home or self-care (01) | DRG 682 ==
LOC: ER 14:43 → ED HOLD 16:00 → EDBEDREQ 19:38 → PCU 3S 20:29
PROVIDERS: ADMIT Internal Medicine Critical Care Medicine; ATTEND Internal Medicine Critical Care Medicine
PROC: 3E1M39Z Irrigation of Peritoneal Cavity using Dialysate, Percutaneous Approach (ICD-10-PCS; 2020-04-16)
PROC: 3E0234Z Introduction of Serum, Toxoid and Vaccine into Muscle, Percutaneous Approach (ICD-10-PCS; 2020-04-17)
PROC: 3E1M39Z Irrigation of Peritoneal Cavity using Dialysate, Percutaneous Approach (ICD-10-PCS; 2020-04-17)
PROC: 4A10X4Z Monitoring of Central Nervous Electrical Activity, External Approach (ICD-10-PCS; 2020-04-18)
PROC: 3E1M39Z Irrigation of Peritoneal Cavity using Dialysate, Percutaneous Approach (ICD-10-PCS; 2020-04-18)
PROC: 3E1M39Z Irrigation of Peritoneal Cavity using Dialysate, Percutaneous Approach (ICD-10-PCS; 2020-04-19)
PROC: 5A09357 Assistance with Respiratory Ventilation, Less than 24 Consecutive Hours, Continuous Positive Airway Pressure (ICD-10-PCS; principal; 2020-04-20)
PROC: 3E1M39Z Irrigation of Peritoneal Cavity using Dialysate, Percutaneous Approach (ICD-10-PCS; 2020-04-20)
PROC: 3E1M39Z Irrigation of Peritoneal Cavity using Dialysate, Percutaneous Approach (ICD-10-PCS; 2020-04-21)
PROC: 5A09357 Assistance with Respiratory Ventilation, Less than 24 Consecutive Hours, Continuous Positive Airway Pressure (ICD-10-PCS; 2020-04-22)
DX: I12.0 Hypertensive chronic kidney disease with stage 5 chronic kidney disease or end stage renal disease (principal); N18.6 End stage renal disease; G93.40 Encephalopathy, unspecified; E87.5 Hyperkalemia; G25.3 Myoclonus; R09.02 Hypoxemia; G43.909 Migraine, unspecified, not intractable, without status migrainosus; E87.70 Fluid overload, unspecified; Z79.899 Other long term (current) drug therapy; Z99.2 Dependence on renal dialysis; Z23 Encounter for immunization; Z88.8 Allergy status to other drugs, medicaments and biological substances; Z79.82 Long term (current) use of aspirin
CPT/HCPCS: 36415; 36600; 70450; 70551; 71045; 80053; 82803; 82948; 83735; 84100; 84443; 85008; 85018; 85025; 85610; 85730; 86870; 86885; 86900; 86901; 86902; 86905; 87081; 90732; 93005; 94660; 94760; 95816; 96374; 96375; 97110; 97161; 97530; 99285; E1594; G0378; J1644; J1940; J2405; J2765; J3490

== ENCOUNTER 2021-09-24 12:00 | Outpatient (CLI) | payer MEDICARE, MEDICAID ==
[~2021-09-24 12:00] MED LIST changes: -BIOT5CAP2 PO; -BIOT5CAP3 PO; -CLON-529 PO; +CLON0.1T2 PO; -CLON0.3T PO; -DILT240C52 PO; +DILT360C38 PO; +DOXA2TAB13 PO; -FOLI0.8T19 PO; +ISOS60TA71 PO; -LACT10SO PO; -LANT1000 PO; +LEVO50TA8 PO; -LISI-600 PO; +LISI40TA13 PO; -LISI40TA4 PO; -METO-467 PO; -METO100T14 PO; +METO50TA16 PO; +OMEP40CA21 PO; -ONDA4TAB6 PO; -PHO667C PO; -PRAM0.253 PO; -PRAM0.5T12 PO; -PROSTAT; +ROSU5TAB12 PO; -VIT-6 PO; +VIT1TABL50 PO
[2021-09-24 15:01] LABS: BASOPHILS % (AUTO) 0.8 % (0-1); EOSINOPHILS # (AUTO) 0.3 X10'3 (0-0.9); EOSINOPHILS % (AUTO) 4.4 % (0-6); HEMATOCRIT 25.3 % (35.0-45.0); HEMOGLOBIN 8.3 g/dl (12.0-16.0); LYMPHOCYTES # (AUTO) 0.8 X10'3 (1.1-4.8); LYMPHOCYTES % (AUTO) 14.3 % (21-51); MEAN CORPUSCULAR HEMOGLOBIN 30.5 PG (27.0-31.0); MEAN CORPUSCULAR HGB CONC 32.9 g/dL (33.0-36.5); MEAN CORPUSCULAR VOLUME 92.7 FL (78-98); MEAN PLATELET VOLUME 9.9 FL (7.4-10.4); MONOCYTES # (AUTO) 0.5 X10'3 (0-0.9); MONOCYTES % (AUTO) 9.2 % (2-12); NEUTROPHILS % (AUTO) 71.3 % (42-75); PLATELET COUNT 154 X10'3 (140-440); RED BLOOD COUNT 2.73 X10'6 (4.20-5.60); WHITE BLOOD COUNT 5.7 X10'3 (4.5-11.0)
[2021-09-24 15:14] LABS: APTT 24 SECONDS (22-32)
[2021-09-24 15:15] LABS: ANION GAP 16 (8-16); BLOOD UREA NITROGEN 61 MG/DL (7-18); BUN/CREATININE RATIO 5.1 (6.6-38.0); CALCIUM 8.7 MG/DL (8.5-10.1); CHLORIDE 100 MMOL/L (99-107); CREATININE 12.02 MG/DL (0.40-0.90); GLUCOSE 101 MG/DL (70-104); SODIUM 139 MMOL/L (135-145); TOTAL CARBON DIOXIDE 22.9 MMOL/L (24-32); eGFR 3 ML/MIN
== END 2021-09-24 23:59 | disposition home or self-care (01) ==
LOC: PRE-OP 12:00 → EDSTATUS 09-29 18:00
PROVIDERS: ATTEND Internal Medicine Interventional Cardiology
DX: Z01.810 Encounter for preprocedural cardiovascular examination (principal); R07.89 Other chest pain; I10 Essential (primary) hypertension; Z79.899 Other long term (current) drug therapy
CPT/HCPCS: 36415; 80048; 85025; 85610; 85730

== ENCOUNTER 2022-02-24 10:37 | Day surgery (SDC) | payer MEDICARE, MEDICAID ==
[2022-02-24] VITALS (12 sets, daily range): BP systolic 123–173; BP diastolic 74–93
[~2022-02-24] VITALS: Ht 157.5 cm; Wt 52.2 kg
[~2022-02-24 10:37] MED LIST changes: +ALPR0.255 PO; +BUPIVAcaine/PF 2.5mg/ml (0.25%) 10ml vial ONE; +CLON0.1T PO; -CLON0.1T2 PO; +CLOP75TA34 PO; +DILT300C34 PO; -DILT360C38 PO; +DOCUMENT DATE & TIME OF BETA-BLOCKER PO ONE; -DOXA2TAB13 PO; +DOXA8TAB20 PO; +ISOS30TA84 PO; -ISOS60TA71 PO; -LEVO50TA8 PO; +LEVO75TA7 PO; +LIDOCAINE 1%/EPI 1:100,000 inj. 10 ML multi-dose vial ONE; +LISI-645 PO; -LISI40TA13 PO; -METO50TA16 PO; +METO50TA17 PO; +ROSU10TA2 PO; -ROSU5TAB12 PO; +ceFAZolin 1000mg inj ONE; +ceFAZolin inj. 2,000 MG in dextrose 5%-water 100 ML IV ONE; +famotidine 20mg tablet PO ONE; +heparin sodium, porcine/PF 100unit/ml 5ML syringe ONE; +povidone-iodine 10% ointment 1 APPLIC APPLIC TP ONE; +ringers solution, lacted 1,000 ML IV SCH
[2022-02-24 12:29] LABS: BASOPHILS % (AUTO) 0.4 % (0-1); EOSINOPHILS # (AUTO) 0.2 X10'3 (0-0.9); EOSINOPHILS % (AUTO) 3.6 % (0-6); LYMPHOCYTES # (AUTO) 0.7 X10'3 (1.1-4.8); LYMPHOCYTES % (AUTO) 10.3 % (21-51); MEAN CORPUSCULAR HEMOGLOBIN 31.4 PG (27.0-31.0); MEAN CORPUSCULAR HGB CONC 32.7 g/dL (33.0-36.5); MEAN CORPUSCULAR VOLUME 95.9 FL (78-98); MEAN PLATELET VOLUME 8.6 FL (7.4-10.4); MONOCYTES # (AUTO) 0.5 X10'3 (0-0.9); MONOCYTES % (AUTO) 7.9 % (2-12); NEUTROPHILS # (AUTO) 4.9 X10'3 (1.8-7.7); NEUTROPHILS % (AUTO) 77.8 % (42-75); PRE OP HEMATOCRIT 38.9 % (35.0-45.0); PRE OP HEMOGLOBIN 12.7 g/dL (12.0-16.0); PRE OP PLATELET COUNT 214 X10'3 (140-440); RED BLOOD COUNT 4.05 X10'6 (4.20-5.60); RED CELL DISTRIBUTION WIDTH 18.3 % (11.5-14.5)
[2022-02-24 12:42] LABS: ALBUMIN 3.3 G/DL (3.4-5.0); ALBUMIN/GLOBULIN RATIO 0.7 (1.1-1.5); ALKALINE PHOSPHATASE 158 IU/L (46-116); BLOOD UREA NITROGEN 51 MG/DL (7-18); BUN/CREATININE RATIO 9.9 (6.6-38.0); CALCIUM 10.6 MG/DL (8.5-10.1); CHLORIDE 97 MMOL/L (99-107); CREATININE 5.15 MG/DL (0.40-0.90); PRE OP ALT 16 U/L (30-65); PRE OP ANION GAP 13 (8-16); PRE OP AST 14 U/L (10-37); PRE OP BILIRUB, TOTAL 0.4 MG/DL (0.0-1.0); PRE OP GLUCOSE 100 MG/DL (70-104); PRE OP POTASSIUM 3.8 MMOL/L (3.4-5.1); PRE OP SODIUM 139 MMOL/L (135-145); TOTAL CARBON DIOXIDE 29.2 MMOL/L (24-32); TOTAL PROTEIN 7.8 G/DL (6.4-8.2); eGFR 8 ML/MIN
[2022-02-24] MEDS ORDERED: normal saline 500ml IV soln 500 ML IV SCH (13:25)
[2022-02-24] MEDS ORDERED: mupirocin 2% ointment 22GM ONE (15:44)
[2022-02-24] MEDS ORDERED: fentaNYL/PF 50MCG/1 ML 2ML syringe ONE (16:02)
[2022-02-24] MEDS ORDERED: midazolam 1 mg/ML 2ml injection ONE (16:02)
[2022-02-24] MEDS ORDERED: ketamine 50mg/5ml syringe ONE (16:02)
[2022-02-24] MEDS ORDERED: LIDOcaine 1%/PF 5ML 10 MG/ML VIAL ONE (16:16)
[2022-02-24] MEDS ORDERED: propofol inj 20 ML IV ONE (16:16)
[2022-02-24] MEDS ORDERED: ePHEDrine 50MG/ML INJ. ONE (16:19)
--- NOTE | 2022-02-24 16:20 | NUR ---
Received from OR via [facility], accompanied by Anesthesiologist DR HICKS and report given by Anesthesiolgist. PT PRESENTS WITH PIV 20G RIGHT FOREARM, ABD DRESSING CDI, VSS. Addendum: 02/24/22 at 1636 by Samantha Fuller RN, RN Amended: Links added.
[2022-02-24] MEDS ORDERED: HYDROcodone/acetaminophen 10/325mg tab PO ONE (16:57)
== END 2022-02-24 17:50 | disposition home or self-care (01) ==
LOC: PAS 10:37
PROVIDERS: ATTEND Surgery
DX: T85.71XA Infection and inflammatory reaction due to peritoneal dialysis catheter, initial encounter (principal); I10 Essential (primary) hypertension; Z88.8 Allergy status to other drugs, medicaments and biological substances; N18.9 Chronic kidney disease, unspecified; D64.9 Anemia, unspecified; Z85.3 Personal history of malignant neoplasm of breast; Z20.822 Contact with and (suspected) exposure to COVID-19; Z79.899 Other long term (current) drug therapy; Z98.890 Other specified postprocedural states; Z90.710 Acquired absence of both cervix and uterus; Z90.12 Acquired absence of left breast and nipple; Y83.8 Other surgical procedures as the cause of abnormal reaction of the patient, or of later complication, without mention of misadventure at the time of the procedure
CPT/HCPCS: 10060; 36415; 80053; 82948; 85025; 87811; J0690; J2250; J2704; J3010; J3490; J7040; J7060; J7120; Z7506; Z7512; A4215; A4618; J1642

== ENCOUNTER 2022-05-07 11:02 | Day surgery (SDC) | payer MEDICARE, MEDICAID ==
[2022-05-05 09:35] LABS: APTT 26 SECONDS (22-32)
[2022-05-05 09:48] LABS: BASOPHILS % (AUTO) 0.3 % (0-1); EOSINOPHILS # (AUTO) 0.2 X10'3 (0-0.9); EOSINOPHILS % (AUTO) 2.9 % (0-6); HEMATOCRIT 35.2 % (35.0-45.0); HEMOGLOBIN 11.3 g/dl (12.0-16.0); LYMPHOCYTES # (AUTO) 0.7 X10'3 (1.1-4.8); LYMPHOCYTES % (AUTO) 11.3 % (21-51); MEAN CORPUSCULAR HEMOGLOBIN 32.9 PG (27.0-31.0); MEAN CORPUSCULAR HGB CONC 32.2 g/dL (33.0-36.5); MEAN CORPUSCULAR VOLUME 102.2 FL (78-98); MEAN PLATELET VOLUME 8.9 FL (7.4-10.4); MONOCYTES # (AUTO) 0.7 X10'3 (0-0.9); MONOCYTES % (AUTO) 10.4 % (2-12); NEUTROPHILS # (AUTO) 4.9 X10'3 (1.8-7.7); NEUTROPHILS % (AUTO) 75.1 % (42-75); PLATELET COUNT 175 X10'3 (140-440); RED BLOOD COUNT 3.45 X10'6 (4.20-5.60); RED CELL DISTRIBUTION WIDTH 19.4 % (11.5-14.5); WHITE BLOOD COUNT 6.5 X10'3 (4.5-11.0)
[2022-05-05 09:49] LABS: ALBUMIN 3.2 G/DL (3.4-5.0); BLOOD UREA NITROGEN 53 MG/DL (7-18); BUN/CREATININE RATIO 10.7 (6.6-38.0); CALCIUM 9.8 MG/DL (8.5-10.1); CHOL/HDL RATIO 2.2 (0.00-4.99); CHOLESTEROL 129 MG/DL (0-200); CREATININE 4.96 MG/DL (0.40-0.90); GLUCOSE 105 MG/DL (70-104); HDL CHOLESTEROL 59 MG/DL (35-60); LDL CHOLESTEROL 56 MG/DL (50-100); TOTAL CARBON DIOXIDE 30.1 MMOL/L (24-32); TRIGLYCERIDES 62 MG/DL (20-135); eGFR 9 ML/MIN
[2022-05-05 10:29] LABS: ANISOCYTOSIS 2+; ELLIPTOCYTES 1+; PLATELET ESTIMATE NORMAL
[2022-05-05 10:30] LABS: LARGE PLATELETS FEW
[2022-05-05 11:51] LABS: ANION GAP 12 (8-16); CHLORIDE 99 MMOL/L (99-107); POTASSIUM 4.2 MMOL/L (3.5-5.1); SODIUM 141 MMOL/L (135-145)
[2022-05-07] VITALS (9 sets, daily range): BP systolic 136–187; BP diastolic 59–86
[~2022-05-07] VITALS: Ht 162.6 cm; Wt 54.2 kg
[~2022-05-07 11:02] MED LIST changes: -BUPIVAcaine/PF 2.5mg/ml (0.25%) 10ml vial ONE; -DOCUMENT DATE & TIME OF BETA-BLOCKER PO ONE; -LIDOCAINE 1%/EPI 1:100,000 inj. 10 ML multi-dose vial ONE; -ceFAZolin 1000mg inj ONE; -ceFAZolin inj. 2,000 MG in dextrose 5%-water 100 ML IV ONE; -famotidine 20mg tablet PO ONE; -heparin sodium, porcine/PF 100unit/ml 5ML syringe ONE; -povidone-iodine 10% ointment 1 APPLIC APPLIC TP ONE; -ringers solution, lacted 1,000 ML IV SCH
[2022-05-07] MEDS ORDERED: verapamil 2.5 mg/ml inj IV ONE (11:27)
[2022-05-07] MEDS ORDERED: nitroGLYCERIN-Tridil 50MG/D5W 250 ML IV ONE (11:28)
[2022-05-07] MEDS ORDERED: fentaNYL/PF 50MCG/1 ML 2ML syringe ONE (11:28)
[2022-05-07] MEDS ORDERED: iohexol 350MG/ML 100ml bottle IV ONE (11:28)
[2022-05-07] MEDS ORDERED: heparin 1,000unit/ml 10ml vial 0 ML ONE (11:28)
[2022-05-07] MEDS ORDERED: midazolam 1 mg/ML 2ml injection ONE (11:28)
[2022-05-07] MEDS ORDERED: diphenhydrAMINE 25mg capsule PO PRN (12:05)
[2022-05-07] MEDS ORDERED: LORazepam 0.5 MG tablet PO PRN (12:05)
[2022-05-07] MEDS ORDERED: normal saline 1,000 ML IV SCH (12:05)
[2022-05-07] MEDS ORDERED: LIDOcaine 1% (10mg/ml) 2ml vial ONE (12:19)
[2022-05-10 06:45] LABS: ISTAT Hct MIX 33 %PCV (35-45); ISTAT O2 SATURATION MIX VENOUS 70 % (60-80); ISTAT SOURCE BLNK
== END 2022-05-07 16:45 | disposition home or self-care (01) ==
LOC: SSTAY O 11:02
PROVIDERS: ATTEND Student in an Organized Health Care Education/Training Program
DX: Z01.810 Encounter for preprocedural cardiovascular examination (principal); I25.10 Atherosclerotic heart disease of native coronary artery without angina pectoris; I12.0 Hypertensive chronic kidney disease with stage 5 chronic kidney disease or end stage renal disease; I42.9 Cardiomyopathy, unspecified; E78.5 Hyperlipidemia, unspecified; N18.6 End stage renal disease; Z79.899 Other long term (current) drug therapy; Z79.82 Long term (current) use of aspirin; E03.9 Hypothyroidism, unspecified; Z88.8 Allergy status to other drugs, medicaments and biological substances; Z90.49 Acquired absence of other specified parts of digestive tract; Z98.890 Other specified postprocedural states
CPT/HCPCS: 36415; 80048; 80061; 82803; 85014; 85025; 85610; 85730; 93005; 93451; 99152; C1751; C1769; J1644; J2250; J3010; J3490; J7030; Q9967; 85008; A6258

== ENCOUNTER 2022-06-30 13:42 | Day surgery (SDC) | payer MEDICARE, MEDICAID ==
[2022-06-24 16:11] LABS: BASOPHILS % (AUTO) 0.9 % (0-1); EOSINOPHILS # (AUTO) 0.1 X10'3 (0-0.9); EOSINOPHILS % (AUTO) 2.7 % (0-6); HEMATOCRIT 38.9 % (35.0-45.0); HEMOGLOBIN 12.8 g/dl (12.0-16.0); LYMPHOCYTES # (AUTO) 0.7 X10'3 (1.1-4.8); LYMPHOCYTES % (AUTO) 13.4 % (21-51); MEAN CORPUSCULAR HEMOGLOBIN 34.4 PG (27.0-31.0); MEAN CORPUSCULAR HGB CONC 32.9 g/dL (33.0-36.5); MEAN CORPUSCULAR VOLUME 104.5 FL (78-98); MEAN PLATELET VOLUME 9.5 FL (7.4-10.4); MONOCYTES # (AUTO) 0.4 X10'3 (0-0.9); MONOCYTES % (AUTO) 7.5 % (2-12); NEUTROPHILS # (AUTO) 3.7 X10'3 (1.8-7.7); NEUTROPHILS % (AUTO) 75.5 % (42-75); PLATELET COUNT 170 X10'3 (140-440); RED BLOOD COUNT 3.73 X10'6 (4.20-5.60); RED CELL DISTRIBUTION WIDTH 15.8 % (11.5-14.5); WHITE BLOOD COUNT 4.9 X10'3 (4.5-11.0)
[2022-06-24 16:21] LABS: APTT 26 SECONDS (22-32)
[2022-06-24 16:24] LABS: ALBUMIN 3.6 G/DL (3.4-5.0); ANION GAP 6 (8-16); BLOOD UREA NITROGEN 23 MG/DL (7-18); BUN/CREATININE RATIO 8.5 (6.6-38.0); CALCIUM 9.6 MG/DL (8.5-10.1); CHLORIDE 101 MMOL/L (99-107); GLUCOSE 84 MG/DL (70-104); POTASSIUM 3.2 MMOL/L (3.5-5.1); SODIUM 139 MMOL/L (135-145); TOTAL CARBON DIOXIDE 31.9 MMOL/L (24-32); eGFR 17 ML/MIN
[2022-06-30] VITALS (9 sets, daily range): BP systolic 139–171; BP diastolic 64–76
[~2022-06-30] VITALS: Ht 157.5 cm; Wt 56.3 kg
[2022-06-30] MEDS ORDERED: diphenhydrAMINE 25mg capsule PO PRN (14:10)
[2022-06-30] MEDS ORDERED: normal saline 1,000 ML IV SCH (14:10)
[2022-06-30] MEDS ORDERED: LORazepam 0.5 MG tablet PO PRN (14:10)
[2022-06-30 16:02] LABS: ALBUMIN 3.3 G/DL (3.4-5.0); ANION GAP 10 (8-16); BLOOD UREA NITROGEN 76 MG/DL (7-18); BUN/CREATININE RATIO 13.4 (6.6-38.0); CALCIUM 9.8 MG/DL (8.5-10.1); CHLORIDE 100 MMOL/L (99-107); CREATININE 5.67 MG/DL (0.40-0.90); GLUCOSE 93 MG/DL (70-104); POTASSIUM 4.5 MMOL/L (3.5-5.1); SODIUM 138 MMOL/L (135-145); TOTAL CARBON DIOXIDE 28.3 MMOL/L (24-32); eGFR 7 ML/MIN
[2022-06-30] MEDS ORDERED: verapamil 2.5 mg/ml inj IV ONE (16:08)
[2022-06-30] MEDS ORDERED: iohexol 350MG/ML 100ml bottle IV ONE (16:08)
[2022-06-30] MEDS ORDERED: nitroGLYCERIN-Tridil 50MG/D5W 250 ML IV ONE (16:08)
[2022-06-30] MEDS ORDERED: LIDOcaine 1% (10mg/ml) 2ml vial ONE (16:08)
[2022-06-30] MEDS ORDERED: heparin 1,000unit/ml 10ml vial 10 ML ONE (16:08)
[2022-06-30] MEDS ORDERED: fentaNYL/PF 50MCG/1 ML 2ML syringe ONE (18:12)
[2022-06-30] MEDS ORDERED: midazolam 1 mg/ML 2ml injection ONE (18:13)
== END 2022-06-30 20:45 | disposition home or self-care (01) ==
LOC: SSTAY O 13:42
PROVIDERS: ATTEND Student in an Organized Health Care Education/Training Program
DX: Z01.810 Encounter for preprocedural cardiovascular examination (principal); T82.855A Stenosis of coronary artery stent, initial encounter; I25.10 Atherosclerotic heart disease of native coronary artery without angina pectoris; I12.0 Hypertensive chronic kidney disease with stage 5 chronic kidney disease or end stage renal disease; N18.6 End stage renal disease; I42.9 Cardiomyopathy, unspecified; I08.0 Rheumatic disorders of both mitral and aortic valves; E03.9 Hypothyroidism, unspecified; E78.5 Hyperlipidemia, unspecified; Z79.82 Long term (current) use of aspirin; Z79.899 Other long term (current) drug therapy; Z88.8 Allergy status to other drugs, medicaments and biological substances; Z90.710 Acquired absence of both cervix and uterus; Z98.890 Other specified postprocedural states; Z85.3 Personal history of malignant neoplasm of breast; Z85.038 Personal history of other malignant neoplasm of large intestine; Z90.12 Acquired absence of left breast and nipple; Z90.49 Acquired absence of other specified parts of digestive tract; Z99.2 Dependence on renal dialysis; Y83.8 Other surgical procedures as the cause of abnormal reaction of the patient, or of later complication, without mention of misadventure at the time of the procedure; Y92.89 Other specified places as the place of occurrence of the external cause
CPT/HCPCS: 36415; 80048; 85025; 85610; 85730; 93005; 93458; 99152; A6258; C1769; C1894; J1644; J2250; J3010; J3490; J7030; Q0163; Q9967; A6402; A6449